=== PATIENT | male | born 1970 | race Caucasian/White ===

== ENCOUNTER 2022-06-19 21:17 | Emergency (ER) | payer BC ==
[~2022-06-19] VITALS: Ht 177.8 cm; Wt 95.5 kg
[~2022-06-19 21:17] MED LIST: AMOXICILLIN 8751 TAB PO; LOTRISONE CREAM15 GM; NORCO 325 MG-51 TAB PO; SEPTRA DS 8001 TAB
[2022-06-19 21:24] VITALS: BP 139/97; TEMP 97.4
[2022-06-19] MEDS ORDERED: FLEXERIL 1010 MG/TAB PO (22:51)
[2022-06-19 23:03] VITALS: PULSE 67
== END 2022-06-19 23:05 | disposition home or self-care (01) ==
LOC: COL.ER 21:17
DX: S22.42XA Multiple fractures of ribs, left side, initial encounter for closed fracture (principal); S40.012A Contusion of left shoulder, initial encounter; W18.39XA Other fall on same level, initial encounter; Y93.74 Activity, frisbee
CPT/HCPCS: J1885